=== PATIENT | female | born 1965 | race Two or more races ===

== ENCOUNTER 2023-03-10 15:50 | Outpatient (REF) | payer BC, SELFPAY ==
--- NOTE | ~2023-03-10 | XR_ITS ---
EXAMINATION: XR SINUSES CLINICAL INFORMATION: Sinusitis COMPARISON: None available. TECHNIQUE: 4 FINDINGS: Visualized paranasal sinuses appear clear. No air-fluid levels. XR/XR sinus min 3V IMPRESSION: Visualized paranasal sinuses appear clear. If clinical concern for sinusitis persists, CT sinuses be more sensitive for evaluation.
== END 2023-03-10 15:51 | disposition home or self-care (01) ==
LOC: HO.XRAY 15:50
PROVIDERS: Visit Provider Otolaryngology
DX: J32.9 Chronic sinusitis, unspecified (principal)
CPT/HCPCS: 70220

== ENCOUNTER 2024-07-27 06:15 | Outpatient (REF) | payer BC, SELFPAY ==
--- NOTE | ~2024-07-27 | US_ITS ---
EXAMINATION: US PELVIS CLINICAL INFORMATION: Abnormal weight loss COMPARISON: None available. TECHNIQUE: Ultrasound of the pelvis is performed using both transabdominal and transvaginal transducers along with Doppler. Transvaginal imaging is performed due to inadequate visualization transabdominally. FINDINGS: Uterus: The uterus is anteverted and measures 7.0 x 3.2 x 4.1 cm. The double wall endometrial thickness is 0.3 mm. There are 2 uterine fibroids, measured 1.8 x 1.8 x 2.1 cm and 2.2 x 1.8 x 2.0 cm in the fundus on the left . Adnexa: Right ovary is surgically absent. There is no pelvic ascites or fluid collection. Left ovary measures 1.2 x 1.2 x 1.5 cm. With a volume of 1.2 mL. US/US pelvic and transvaginal IMPRESSION: 2 uterine fibroids. Status post right oophorectomy Electronically signed by: Corey Perales MD 07/29/2024 08:02 PM EDT
== END 2024-07-27 06:16 | disposition home or self-care (01) ==
LOC: HO.UMASIMG 06:15
PROVIDERS: Visit Provider Family Medicine
DX: R63.4 Abnormal weight loss (principal)
CPT/HCPCS: 76830; 76856